=== PATIENT | male | born 1960 | race Caucasian/White ===

== ENCOUNTER → 2019-03-14 | Outpatient (CLI) | payer OTHER ==
[~2019-03-14] MED LIST: ALDACTONE50 MG PO; AMBIEN 10 MG TA10 MG PO; ASPIR 8181 M1 PO; BENICAR20 MG PO; CRESTOR40 MG PO; DILTIAZEM 24HR300 M2 PO; HYDROCODONE-AP1 EAC6 PO; IBUPROFEN 400400 M2 PO; IMDUR 30 MG TAB30 M1 PO; IRON159 MG PO; LASIX 20 MG TAB20 MG PO; LEXAPRO 10 MG T10 M1 PO; METFORMIN HCL500 MG PO; NEXIUM40 MG PO; OLANZAPINE10 MG PO; OXYCONTIN10 M1 PO; PERCOCET PO; QVAR8.7 G1 INH; SPIRIVA18 MCG INH; TRAZODONE HCL100 MG PO; UNICOMPLEX M TA1 TA1 PO; VANCOMYCIN1.5 GM/150 IV; XANAX 0.25 MG0.25 MG PO; XARELTO10 MG PO; ZOLOFT100 MG PO
== END ==
LOC: CAT 09:11
DX: Z13.6 Encounter for screening for cardiovascular disorders (principal); E78.00 Pure hypercholesterolemia, unspecified; I25.10 Atherosclerotic heart disease of native coronary artery without angina pectoris

== ENCOUNTER → 2019-08-27 | Outpatient (CLI) | payer BC | LOC: SJCVCIMAG 08:24 | PROVIDERS: ATTEND Internal Medicine Cardiovascular Disease | DX: I07.1 Rheumatic tricuspid insufficiency (principal); I11.9 Hypertensive heart disease without heart failure; I25.10 Atherosclerotic heart disease of native coronary artery without angina pectoris; E78.5 Hyperlipidemia, unspecified; J44.9 Chronic obstructive pulmonary disease, unspecified; E11.9 Type 2 diabetes mellitus without complications; Z82.49 Family history of ischemic heart disease and other diseases of the circulatory system; Z87.891 Personal history of nicotine dependence; Z79.899 Other long term (current) drug therapy; Z88.0 Allergy status to penicillin; Z88.2 Allergy status to sulfonamides; Z88.8 Allergy status to other drugs, medicaments and biological substances ==

== ENCOUNTER → 2019-08-29 | Outpatient (CLI) | payer BC | LOC: SJCVCIMAG 08:57 | PROVIDERS: ATTEND Internal Medicine Cardiovascular Disease | DX: I65.23 Occlusion and stenosis of bilateral carotid arteries (principal) ==

== ENCOUNTER → 2019-10-09 | Outpatient (CLI) | payer BC | LOC: RAD 10:29 | PROVIDERS: ATTEND Pediatrics | DX: J44.9 Chronic obstructive pulmonary disease, unspecified (principal); I51.7 Cardiomegaly ==

== ENCOUNTER → 2020-03-10 | Outpatient (CLI) | payer BC | LOC: CAT 08:10 | PROVIDERS: ATTEND Pediatrics | DX: Z12.2 Encounter for screening for malignant neoplasm of respiratory organs (principal); Z87.891 Personal history of nicotine dependence ==

== ENCOUNTER → 2020-04-09 | Outpatient (CLI) | payer BC | LOC: RAD 16:06 | PROVIDERS: ATTEND Neuromusculoskeletal Medicine & OMM | DX: S80.11XA Contusion of right lower leg, initial encounter (principal); M17.11 Unilateral primary osteoarthritis, right knee; X58.XXXA Exposure to other specified factors, initial encounter; Y92.89 Other specified places as the place of occurrence of the external cause; Y99.8 Other external cause status ==

== ENCOUNTER → 2020-11-13 | Outpatient (CLI) | payer BC ==
[~2020-11-13] VITALS: Ht 177.8 cm; Wt 142.9 kg
[~2020-11-13] MED LIST changes: +DULOXETINE HCL30 MG PO; -NEXIUM40 MG PO; +OMEPRAZOLE 20 M20 M1 PO; +PROAIR HFA8.5 GM INH; +TRAMADOL 50 MG50 MG PO
[2020-11-13 10:48] VITALS: BP 127/74
--- NOTE | 2020-11-13 11:26 | NUR ---
Pain Clinic Assessment: 1. History of Osteoarthritis: KNEES HIPS SPINE History of Rheumatoid Arthritis: DENIES 2. Height: 5 ft. 10 in. 177.8 cm. Weight: 315.0 lb. oz. 142.884 kg. Patient's BMI: 45.2 3. Vital Signs: BP: 127/74 Pulse: 67 Resp: 18 Temp: 02 Sat: 100 ECG Mon: 4. Pain Intensity: 6 TO 8 5. Fall Risk: Dizziness: N Needs help standing or walking: N Fallen in the last 3 months: N Fall risk comments: 6. Patient on Blood Thinner: None 7. History of Hypertension: Y 8. Opioid Therapy greater than 6 weeks: N Opiate Contract Signed: 9. Risk Assessment Tool Provided: MOD-7 10. Functional Assessment Tool: 55/70 11. Recreational Drug Use: Never Drug Type: Tobacco Use: Former Smoker Tobacco Type: Amount or Packs/day: How Many Years: Alcohol Use: No Frequency: Quant:
== END ==
LOC: PAIN 09:52
PROVIDERS: ATTEND Anesthesiology Pain Medicine
DX: M51.16 Intervertebral disc disorders with radiculopathy, lumbar region (principal); M48.061 Spinal stenosis, lumbar region without neurogenic claudication; M47.26 Other spondylosis with radiculopathy, lumbar region; E11.42 Type 2 diabetes mellitus with diabetic polyneuropathy; E78.5 Hyperlipidemia, unspecified; M16.11 Unilateral primary osteoarthritis, right hip; I25.10 Atherosclerotic heart disease of native coronary artery without angina pectoris; J44.9 Chronic obstructive pulmonary disease, unspecified; K21.9 Gastro-esophageal reflux disease without esophagitis; G47.33 Obstructive sleep apnea (adult) (pediatric); Z96.651 Presence of right artificial knee joint; Z96.641 Presence of right artificial hip joint; Z79.899 Other long term (current) drug therapy; Z88.8 Allergy status to other drugs, medicaments and biological substances